=== PATIENT | female | born 1950 | race African-American/Black ===

== ENCOUNTER 2017-05-03 11:46 | Observation (INO) | payer OTHER ==
[~2017-05-03] VITALS: Ht 167.6 cm; Wt 78.0 kg
[~2017-05-03 11:46] MED LIST: AMLODIPINE BESYL5 MG PO; CELEBREX PO; DITROPAN5 MG PO; FLEXERIL10 MG PO; LANTUS; LANTUS 10100 UNITS/ SC; LIDOCAINE700 MG TD; METFORMIN; METFORMIN HCL500 MG PO; NOVOLOG; NOVOLOG 10100 UNITS/ SC; OXYBUTIN; QUINAPRIL HCL5 MG PO; QUINOPRIL; TYLENOL WITH C1 EACH PO; VGO 401 EACH MC
[2017-05-03 13:10] LABS: HEMATOCRIT 42.7 % (36.0-46.0); HEMOGLOBIN 14.7 G/DL (11.9-15.5); MCH 29.4 PG (29.0-34.0); MCHC 34.4 G/DL (30.0-36.0); MCV 85.4 FL (83-99); PLATELET COUNT 449 K/uL (156-360); RBC DIS.WIDTH-CV 13.7 % (11.8-14.6); RBC DIS.WIDTH-SD 42.5 % (39-53); WHITE BLOOD COUNT 10.9 K/uL (4.1-10.2)
[2017-05-03 13:18] LABS: ALBUMIN 3.7 g/dL (3.2-4.8); CHLORIDE 100 mEq/L (99-109); POTASSIUM 3.8 mEq/L (3.7-5.4); SODIUM 136 mEq/L (136-147)
[2017-05-03 13:20] LABS: GLUCOSE 99 mg/dL (70-99); TOTAL PROTEIN 8.7 g/dL (6.4-8.3)
[2017-05-03 13:22] LABS: TOTAL BILIRUBIN 0.5 mg/dL (0.0-1.0)
[2017-05-03 13:24] LABS: ALKALINE PHOSPHATASE 135 IU/L (3-129); CREATININE 1.9 mg/dL (0.6-1.3); GFR ESTIMATE (CALCULATED) 34 mL/min/
[2017-05-03 13:25] LABS: AST (GOT) 18 IU/L (2-34); UREA NITROGEN (BUN) 39 mg/dL (9-23)
[2017-05-03 13:27] LABS: ALT (GPT) 20 IU/L (3-49)
[2017-05-03 13:53] LABS: TROP-I INTERPRETATION NEGATIVE; TROPONIN-I < 0.01 ng/mL (0.0-0.30)
[2017-05-03 14:06] LABS: APPEARANCE CLOUDY ((CLEAR)); BILIRUBIN NEGATIVE; BLOOD MODERATE; COLOR YELLOW ((YELLOW)); GLUCOSE (STRIP) NEGATIVE; KETONES NEGATIVE; LEUKOCYTES MODERATE; NITRITE NEGATIVE; PROTEIN (STRIP) 100; SPECIFIC GRAVITY 1.012 (1.000-1.030); UROBILINOGEN 0.2 MG/DL (0.2-1.0)
[2017-05-03 14:30] LABS: WHITE BLOOD CELLS 20-30 /HPF (0-5)
[2017-05-03 14:31] LABS: MUCUS NONE SEEN /LPF
[2017-05-03 14:32] LABS: BACTERIA 3+ /HPF; EPITHELIAL CELLS 1+ /HPF
[2017-05-03] MEDS ORDERED: NEURONTIN100 MG PO (15:59)
[2017-05-03] MEDS ORDERED: LO-DOSE ASPIRIN81 M1 PO (16:01)
[2017-05-03] MEDS ORDERED: VITAMIN E100 UNIT PO (16:04)
[2017-05-03] MEDS ORDERED: VITAMIN D2000 UNI1 PO (16:06)
[2017-05-03] MEDS ORDERED: CYANOCOBALAM1000 MCG PO (16:07)
[2017-05-03] MEDS ORDERED: [UNRECOGNIZED DRUG - CODE] TP (16:14)
[2017-05-03] MEDS ORDERED: CENTRUM SILVER1 EAC3 PO (16:17)
[2017-05-03] MEDS ORDERED: PRAVACHOL10 MG PO (16:18)
[2017-05-03 18:14] VITALS: BP 147/86
[2017-05-03 20:00] VITALS: BP 120/62
[2017-05-04 00:04] VITALS: BP 111/63
[2017-05-04 05:50] LABS: HEMATOCRIT 39.2 % (36.0-46.0); HEMOGLOBIN 13.1 G/DL (11.9-15.5); MCH 28.5 PG (29.0-34.0); MCHC 33.4 G/DL (30.0-36.0); MCV 85.2 FL (83-99); PLATELET COUNT 415 K/uL (156-360); RBC DIS.WIDTH-CV 13.5 % (11.8-14.6); RBC DIS.WIDTH-SD 42.5 % (39-53); WHITE BLOOD COUNT 9.9 K/uL (4.1-10.2)
[2017-05-04 08:08] VITALS: BP 137/80
[2017-05-04 08:10] LABS: CHLORIDE 105 MEQ/L (99-109); CREATININE 1.6 MG/DL (0.6-1.3); GFR ESTIMATE (CALCULATED) 42 mL/min/; GLUCOSE 81 mg/dL (70-99); POTASSIUM 4.1 MEQ/L (3.7-5.4); SODIUM 138 MEQ/L (136-147); UREA NITROGEN (BUN) 33 mg/dL (9-23)
[2017-05-04 10:17] LABS: HEMOGLOBIN A1c (GLYCOHEMOGLOB) 7.8 % (Below 5.7)
[2017-05-04 12:39] VITALS: BP 120/73
[2017-05-04 15:41] VITALS: BP 133/79
[2017-05-04 19:00] VITALS: BP 111/60
[2017-05-05 00:57] VITALS: BP 107/59
[2017-05-05 05:39] VITALS: BP 115/87
[2017-05-05 07:12] LABS: CHLORIDE 110 MEQ/L (99-109); CREATININE 1.4 MG/DL (0.6-1.3); GFR ESTIMATE (CALCULATED) 49 mL/min/; POTASSIUM 4.3 MEQ/L (3.7-5.4); SODIUM 139 MEQ/L (136-147); UREA NITROGEN (BUN) 27 mg/dL (9-23)
[2017-05-05 07:22] LABS: GLUCOSE 116 mg/dL (70-99)
[2017-05-05 08:24] VITALS: BP 115/58
[2017-05-05 11:32] VITALS: BP 104/72
[2017-05-05] MEDS ORDERED: OXYCODONE-APAP1 EACH PO (11:36)
[2017-05-05] MEDS ORDERED: TRAMADOL HCL50 MG PO (11:36)
[2017-05-05] MEDS ORDERED: CYCLOBENZAPRINE5 MG PO (11:36)
[2017-05-05] MEDS ORDERED: LIDOCARE1 EACH TP (11:36)
[2017-05-05] MEDS ORDERED: MELOXICAM7.5 MG PO (11:37)
== END 2017-05-05 14:36 | disposition home or self-care (01) ==
LOC: EME 11:46 → 5WEST 16:03 → EDOF 16:03 → ENRESERV 16:07 → 5WEST 17:33
PROVIDERS: Internal Medicine; Nurse Practitioner Family
DX: N17.9 Acute kidney failure, unspecified (principal); M54.42 Lumbago with sciatica, left side; M47.27 Other spondylosis with radiculopathy, lumbosacral region; I10 Essential (primary) hypertension; E11.9 Type 2 diabetes mellitus without complications; F40.240 Claustrophobia; G89.29 Other chronic pain; R26.89 Other abnormalities of gait and mobility; W18.30XA Fall on same level, unspecified, initial encounter; K59.00 Constipation, unspecified; Z87.891 Personal history of nicotine dependence; Z90.710 Acquired absence of both cervix and uterus; Z82.49 Family history of ischemic heart disease and other diseases of the circulatory system; Z83.3 Family history of diabetes mellitus; Z82.0 Family history of epilepsy and other diseases of the nervous system; Z79.82 Long term (current) use of aspirin; Z79.4 Long term (current) use of insulin
CPT/HCPCS: 71046; 72100; 72148; 73590; 80048; 80053; 81003; 82948; 83036; 83880; 84484; 85027; 85379; 87077; 87086; 87186; 93005; 99281; 99285; G0378; J0696; J1650; J1815; J2060; J2270; J7030

== ENCOUNTER 2017-09-20 16:15 | Inpatient (IN) | payer OTHER ==
[~2017-09-20] VITALS: Ht 167.6 cm; Wt 82.2 kg
[~2017-09-20 16:15] MED LIST changes: +CENTRUM SILVER1 EAC3 PO; +CYANOCOBALAM1000 MCG PO; +CYCLOBENZAPRINE5 MG PO; +LIDOCARE1 EACH TP; +LO-DOSE ASPIRIN81 M1 PO; +MELOXICAM7.5 MG PO; +NEURONTIN100 MG PO; +OXYCODONE-APAP1 EACH PO; +PRAVACHOL10 MG PO; +TRAMADOL HCL50 MG PO; +VITAMIN D2000 UNI1 PO; +VITAMIN E100 UNIT PO; +[UNRECOGNIZED DRUG - CODE] TP
[2017-09-20 17:45] LABS: HEMATOCRIT 33.7 % (36.0-46.0); HEMOGLOBIN 11.8 G/DL (11.9-15.5); MCH 28.6 PG (29.0-34.0); MCV 81.8 FL (83-99); PLATELET COUNT 235 K/uL (156-360); RBC DIS.WIDTH-CV 14.6 % (11.8-14.6); RBC DIS.WIDTH-SD 43.6 % (39-53); RED BLOOD COUNT 4.12 M/uL (3.80-5.20); WHITE BLOOD COUNT 22.9 K/uL (4.1-10.2)
[2017-09-20 17:53] LABS: INTER. NORMALIZED RATIO 1.2
[2017-09-20 17:54] LABS: ALBUMIN 3.2 g/dL (3.2-4.8); CHLORIDE 97 mEq/L (99-109); POTASSIUM 4.2 mEq/L (3.7-5.4); SODIUM 128 mEq/L (136-147)
[2017-09-20 17:57] LABS: TOTAL PROTEIN 7.8 g/dL (6.4-8.3)
[2017-09-20 17:58] LABS: TOTAL BILIRUBIN 1.1 mg/dL (0.0-1.0)
[2017-09-20 18:00] LABS: ALKALINE PHOSPHATASE 161 IU/L (3-129); CREATININE 2.2 mg/dL (0.6-1.3); GFR ESTIMATE (CALCULATED) 29 mL/min/
[2017-09-20 18:01] LABS: UREA NITROGEN (BUN) 32 mg/dL (9-23)
[2017-09-20 18:02] LABS: AST (GOT) 24 IU/L (2-34)
[2017-09-20 18:03] LABS: ALT (GPT) 35 IU/L (3-49)
[2017-09-20 18:04] LABS: LIPASE 18 U/L (1.0-51.0)
[2017-09-20 18:10] LABS: TROP-I INTERPRETATION NEGATIVE; TROPONIN-I 0.02 ng/mL (0.0-0.30)
[2017-09-20 18:15] LABS: GLUCOSE 440 mg/dL (70-99)
[2017-09-20 18:34] LABS: BASOPHIL (%) 0.2 % (0-1); BASOPHIL COUNT 0.1 K/uL (0-0.1); EOSINOPHIL (%) 0 % (0-5); HEMATOLOGY COMMENT 1 SMEAR COMPATIBLE; IMMATURE GRANULOCYTE (%) 0.8 % (0.0-0.7); LYMPHOCYTE (%) 3.2 % (15-42); LYMPHOCYTE COUNT 0.7 K/uL (1.0-2.8); MONOCYTE (%) 4.3 % (3-12); NEUTROPHIL (%) 91.5 % (45-76); PLAT.SUFFICIENCY ADEQUATE
[2017-09-20] MEDS ORDERED: MIRALAX17 GM PO (18:50)
[2017-09-20] MEDS ORDERED: CYMBALTA60 MG PO (18:50)
[2017-09-20] MEDS ORDERED: VENTOLIN HFA18 GM IH (18:50)
[2017-09-20 20:33] LABS: APPEARANCE SL.HAZY ((CLEAR)); BILIRUBIN NEGATIVE; BLOOD MODERATE; COLOR YELLOW ((YELLOW)); GLUCOSE (STRIP) 150; KETONES NEGATIVE; LEUKOCYTES MODERATE; NITRITE POSITIVE; PROTEIN (STRIP) 100; UROBILINOGEN 0.2 MG/DL (0.2-1.0)
[2017-09-20 20:57] LABS: BACTERIA 2+ /HPF; EPITHELIAL CELLS RARE /HPF; MUCUS NONE SEEN /LPF; RED BLOOD CELLS 0-5 /HPF (0-5); UCUL ADDED? YES
[2017-09-20 23:01] LABS: ALBUMIN 2.7 g/dL (3.2-4.8)
[2017-09-20 23:09] LABS: AST (GOT) 23 IU/L (2-34); DIRECT BILIRUBIN 1.3 mg/dL (0.0-0.3)
[2017-09-20 23:10] LABS: ALT (GPT) 31 IU/L (3-49)
[2017-09-20 23:11] LABS: ALKALINE PHOSPHATASE 331 IU/L (3-129); TOTAL BILIRUBIN 1.8 mg/dL (0.0-1.0); TOTAL PROTEIN 6.5 g/dL (6.4-8.3)
[2017-09-20 23:15] LABS: TROP-I INTERPRETATION NEGATIVE; TROPONIN-I 0.05 ng/mL (0.0-0.30)
[2017-09-21 00:01] VITALS: BP 88/52
[2017-09-21 00:36] VITALS: BP 85/52
[2017-09-21 02:52] LABS: HEMATOCRIT 28.1 % (36.0-46.0); HEMOGLOBIN 9.8 G/DL (11.9-15.5); MCH 28.9 PG (29.0-34.0); MCHC 34.9 G/DL (30.0-36.0); MCV 82.9 FL (83-99); PLATELET COUNT 190 K/uL (156-360); RBC DIS.WIDTH-CV 14.7 % (11.8-14.6); RBC DIS.WIDTH-SD 44.6 % (39-53); RED BLOOD COUNT 3.39 M/uL (3.80-5.20); WHITE BLOOD COUNT 22.1 K/uL (4.1-10.2)
[2017-09-21 03:28] VITALS: BP 80/57
[2017-09-21 04:56] LABS: PCO2 29 mm Hg (35-45); PO2 66 mm Hg (80-100); pH 7.42 (7.35-7.45)
[2017-09-21 04:57] LABS: BASE EXCESS -4.8 mEq/L (-3 to +3); BICARBONATE 18.8 mEq/L (22-26); COMMENTS - BLOOD GASES C+; FI02 21 %; METHEMOGLOBIN 1.1 % (0-1.5); SITE RR; TOTAL RESP RATE 24 resp/min
[2017-09-21 05:06] VITALS: BP 86/57
[2017-09-21 05:06] LABS: INTER. NORMALIZED RATIO 1.2
[2017-09-21 05:15] LABS: FIBRINOGEN 809 mg/dL (150-450); PTT 54.1 SEC (25-37)
[2017-09-21 09:02] LABS: GLUCOSE 141 mg/dL (70-99); UREA NITROGEN (BUN) 37 mg/dL (9-23)
[2017-09-21 09:03] LABS: CREATININE 2.9 MG/DL (0.6-1.3); GFR ESTIMATE (CALCULATED) 21 mL/min/
[2017-09-21 09:42] LABS: CHLORIDE 104 MEQ/L (99-109); POTASSIUM 4.1 MEQ/L (3.7-5.4); SODIUM 134 MEQ/L (136-147)
[2017-09-21 12:07] VITALS: BP 128/69
[2017-09-21 19:46] VITALS: BP 130/70
[2017-09-22 00:07] VITALS: BP 139/65
[2017-09-22 03:43] VITALS: BP 125/68
[2017-09-22 05:54] LABS: HEMATOCRIT 26.9 % (36.0-46.0); HEMOGLOBIN 9.1 G/DL (11.9-15.5); MCH 27.7 PG (29.0-34.0); MCHC 33.8 G/DL (30.0-36.0); PLATELET COUNT 223 K/uL (156-360); RBC DIS.WIDTH-CV 15.2 % (11.8-14.6); RED BLOOD COUNT 3.28 M/uL (3.80-5.20)
[2017-09-22 06:20] LABS: CHLORIDE 111 MEQ/L (99-109); GFR ESTIMATE (CALCULATED) 30 mL/min/; POTASSIUM 3.6 MEQ/L (3.7-5.4); SODIUM 139 MEQ/L (136-147); UREA NITROGEN (BUN) 34 mg/dL (9-23)
[2017-09-22 06:26] LABS: CREATININE 2.1 MG/DL (0.6-1.3); GLUCOSE 102 mg/dL (70-99)
[2017-09-22 06:35] LABS: VANCOMYCIN, TROUGH 7.2 MCG/ML (10-20)
[2017-09-22 07:27] VITALS: BP 145/80
[2017-09-22 12:07] VITALS: BP 144/84
[2017-09-22 15:36] VITALS: BP 146/82
[2017-09-22 19:55] VITALS: BP 183/83; BP 193/83
[2017-09-23] VITALS (7 sets, daily range): BP systolic 124–188; BP diastolic 70–94
[2017-09-23 06:13] LABS: HEMATOCRIT 27.1 % (36.0-46.0); HEMOGLOBIN 9.2 G/DL (11.9-15.5); MCHC 33.9 G/DL (30.0-36.0); MCV 82.6 FL (83-99); PLATELET COUNT 264 K/uL (156-360); RBC DIS.WIDTH-CV 15.5 % (11.8-14.6); RBC DIS.WIDTH-SD 47.1 % (39-53); RED BLOOD COUNT 3.28 M/uL (3.80-5.20); WHITE BLOOD COUNT 20.6 K/uL (4.1-10.2)
[2017-09-23 06:53] LABS: CHLORIDE 114 MEQ/L (99-109); CREATININE 1.8 MG/DL (0.6-1.3); GFR ESTIMATE (CALCULATED) 36 mL/min/; POTASSIUM 3.4 MEQ/L (3.7-5.4); SODIUM 143 MEQ/L (136-147); UREA NITROGEN (BUN) 29 mg/dL (9-23)
[2017-09-23 06:54] LABS: GLUCOSE 72 mg/dL (70-99)
[2017-09-24] VITALS (9 sets, daily range): BP systolic 110–182; BP diastolic 62–85
[2017-09-24 06:54] LABS: HEMATOCRIT 27.5 % (36.0-46.0); HEMOGLOBIN 9.1 G/DL (11.9-15.5); MCH 27.3 PG (29.0-34.0); MCHC 33.1 G/DL (30.0-36.0); MCV 82.6 FL (83-99); PLATELET COUNT 319 K/uL (156-360); RBC DIS.WIDTH-CV 15.3 % (11.8-14.6); RBC DIS.WIDTH-SD 46.9 % (39-53); RED BLOOD COUNT 3.33 M/uL (3.80-5.20); WHITE BLOOD COUNT 16.6 K/uL (4.1-10.2)
[2017-09-24 07:21] LABS: CHLORIDE 114 MEQ/L (99-109); CREATININE 1.4 MG/DL (0.6-1.3); GFR ESTIMATE (CALCULATED) 49 mL/min/; GLUCOSE 77 mg/dL (70-99); POTASSIUM 3.7 MEQ/L (3.7-5.4); SODIUM 145 MEQ/L (136-147); UREA NITROGEN (BUN) 21 mg/dL (9-23)
[2017-09-25 03:54] VITALS: BP 136/61
[2017-09-25 07:45] VITALS: BP 148/87
[2017-09-25 09:10] LABS: CHLORIDE 113 MEQ/L (99-109); CREATININE 1.3 MG/DL (0.6-1.3); GFR ESTIMATE (CALCULATED) 53 mL/min/; GLUCOSE 117 mg/dL (70-99); POTASSIUM 3.3 MEQ/L (3.7-5.4); SODIUM 143 MEQ/L (136-147); UREA NITROGEN (BUN) 17 mg/dL (9-23)
[2017-09-25 12:21] VITALS: BP 134/78
[2017-09-25 13:57] LABS: C DIFF TOXIN NEGATIVE (NEGATIVE)
[2017-09-25 15:21] VITALS: BP 178/73
[2017-09-25] MEDS ORDERED: CIPROFLOXACIN500 M1 PO (15:32)
[2017-09-25] MEDS ORDERED: AMLODIPINE BESYL5 MG PO (15:34)
== END 2017-09-25 16:47 | disposition home or self-care (01) | DRG 871 ==
LOC: EME 16:15 → EDOF 21:29 → 5SOUTH 21:29 → 4EAST 21:29 → ENRESERV 21:33 → ENRESERVTM 21:53 → 5SOUTH 09-21 00:18 → ENRESERV 09-21 04:36 → 4EAST 09-21 04:56 → ENRESERV 09-24 11:43 → 5SOUTH 09-24 14:48
PROVIDERS: Emergency Medicine; Hospitalist; Internal Medicine
DX: A41.9 Sepsis, unspecified organism (principal); N13.6 Pyonephrosis; E11.22 Type 2 diabetes mellitus with diabetic chronic kidney disease; E11.42 Type 2 diabetes mellitus with diabetic polyneuropathy; E11.65 Type 2 diabetes mellitus with hyperglycemia; N17.9 Acute kidney failure, unspecified; R65.20 Severe sepsis without septic shock; E78.5 Hyperlipidemia, unspecified; Z87.891 Personal history of nicotine dependence; B96.20 Unspecified Escherichia coli [E. coli] as the cause of diseases classified elsewhere; R19.7 Diarrhea, unspecified; Z90.49 Acquired absence of other specified parts of digestive tract; Z79.4 Long term (current) use of insulin; N32.81 Overactive bladder; N18.9 Chronic kidney disease, unspecified; I12.9 Hypertensive chronic kidney disease with stage 1 through stage 4 chronic kidney disease, or unspecified chronic kidney disease; R09.02 Hypoxemia; E87.1 Hypo-osmolality and hyponatremia; E87.2 Acidosis; E87.6 Hypokalemia; N81.9 Female genital prolapse, unspecified; J18.9 Pneumonia, unspecified organism; Z87.442 Personal history of urinary calculi
CPT/HCPCS: 36600; 71046; 71250; 74018; 74176; 74420; 78582; 80048; 80053; 80076; 80202; 81003; 82800; 82803; 82948; 83605; 83690; 83880; 83930; 84484; 85025; 85027; 85379; 85384; 85610; 85730; 87040; 87077; 87086 GA; 87186; 87493; 87801; 93005; 93970; 94799; 99281; 99285; A9540; A9567; C2625; J1644; J1815; J2405; J2543; J2930; J3010; J3370; J7030; J7050; J7120

== ENCOUNTER 2017-10-12 23:27 | Inpatient (IN) | payer OTHER ==
[~2017-10-12] VITALS: Ht 167.6 cm; Wt 76.5 kg
[~2017-10-12 23:27] MED LIST changes: +CIPROFLOXACIN500 M1 PO; +CYMBALTA60 MG PO; +MIRALAX17 GM PO; +VENTOLIN HFA18 GM IH
[2017-10-13 00:45] LABS: BASOPHIL (%) 0.3 % (0-1); EOSINOPHIL (%) 0 % (0-5); HEMATOCRIT 26.8 % (36.0-46.0); HEMOGLOBIN 9.2 G/DL (11.9-15.5); IMMATURE GRANULOCYTE (%) 0.5 % (0.0-0.7); LYMPHOCYTE (%) 8.7 % (15-42); MCH 27.8 PG (29.0-34.0); MCHC 34.3 G/DL (30.0-36.0); MONOCYTE (%) 5.2 % (3-12); MONOCYTE COUNT 0.6 K/uL (0-0.8); NEUTROPHIL (%) 85.3 % (45-76); NEUTROPHIL COUNT 9.3 K/uL (1.8-6.4); PLATELET COUNT 335 K/uL (156-360); RBC DIS.WIDTH-CV 14.1 % (11.8-14.6); RBC DIS.WIDTH-SD 42.3 % (39-53); RED BLOOD COUNT 3.31 M/uL (3.80-5.20); WHITE BLOOD COUNT 10.9 K/uL (4.1-10.2)
[2017-10-13 00:59] LABS: CHLORIDE 100 mEq/L (99-109); POTASSIUM 3.9 mEq/L (3.7-5.4); SODIUM 133 mEq/L (136-147)
[2017-10-13 01:01] LABS: GLUCOSE 54 mg/dL (70-99)
[2017-10-13 01:05] LABS: CREATININE 2.6 mg/dL (0.6-1.3); GFR ESTIMATE (CALCULATED) 24 mL/min/
[2017-10-13 01:06] LABS: UREA NITROGEN (BUN) 20 mg/dL (9-23)
[2017-10-13 02:06] LABS: APPEARANCE SL.HAZY ((CLEAR)); BILIRUBIN NEGATIVE; BLOOD SMALL; COLOR YELLOW ((YELLOW)); GLUCOSE (STRIP) NEGATIVE; KETONES NEGATIVE; LEUKOCYTES TRACE; NITRITE NEGATIVE; PROTEIN (STRIP) >=500; SPECIFIC GRAVITY 1.015 (1.000-1.030); UROBILINOGEN 0.2 MG/DL (0.2-1.0)
[2017-10-13 02:11] LABS: BACTERIA RARE /HPF; EPITHELIAL CELLS 2+ /HPF; MUCUS TRACE /LPF; RED BLOOD CELLS 0-5 /HPF (0-5); UCUL ADDED? NO; WHITE BLOOD CELLS 0-5 /HPF (0-5)
[2017-10-13 06:24] VITALS: BP 119/60
[2017-10-13 06:59] LABS: C-REACTIVE PROTEIN 206.4 MG/L (0-10)
[2017-10-13 07:25] VITALS: BP 111/56
[2017-10-13 07:45] LABS: ERTH.SED.RATE 123 MM/HR (0-30)
[2017-10-13 11:00] VITALS: BP 107/59
[2017-10-13 15:25] VITALS: BP 137/65
[2017-10-13 17:44] LABS: ALBUMIN 2.9 g/dL (3.2-4.8); CHLORIDE 105 mEq/L (99-109); POTASSIUM 4.2 mEq/L (3.7-5.4); SODIUM 135 mEq/L (136-147)
[2017-10-13 17:49] LABS: GLUCOSE 161 mg/dL (70-99)
[2017-10-13 17:50] LABS: CREATININE 2.5 mg/dL (0.6-1.3); GFR ESTIMATE (CALCULATED) 25 mL/min/; PHOSPHORUS 1.9 mg/dL (2.5-4.9)
[2017-10-13 17:51] LABS: UREA NITROGEN (BUN) 21 mg/dL (9-23)
[2017-10-13 18:24] VITALS: BP 175/74
[2017-10-13 21:25] VITALS: BP 131/63
[2017-10-14] VITALS (7 sets, daily range): BP systolic 120–184; BP diastolic 62–90
[2017-10-14 06:27] LABS: BASOPHIL (%) 0.4 % (0-1); EOSINOPHIL (%) 1.3 % (0-5); EOSINOPHIL COUNT 0.1 K/uL (0-0.3); HEMATOCRIT 24.4 % (36.0-46.0); IMMATURE GRANULOCYTE (%) 0.6 % (0.0-0.7); LYMPHOCYTE (%) 18.8 % (15-42); LYMPHOCYTE COUNT 1.6 K/uL (1.0-2.8); MCH 26.7 PG (29.0-34.0); MCHC 32.8 G/DL (30.0-36.0); MCV 81.3 FL (83-99); MONOCYTE (%) 10.7 % (3-12); MONOCYTE COUNT 0.9 K/uL (0-0.8); NEUTROPHIL (%) 68.2 % (45-76); NEUTROPHIL COUNT 5.8 K/uL (1.8-6.4); PLATELET COUNT 323 K/uL (156-360); RBC DIS.WIDTH-CV 14.4 % (11.8-14.6); RBC DIS.WIDTH-SD 42.4 % (39-53); WHITE BLOOD COUNT 8.4 K/uL (4.1-10.2)
[2017-10-14 06:51] LABS: ALBUMIN 2.6 G/DL (3.2-4.8); CHLORIDE 106 MEQ/L (99-109); CREATININE 2.1 MG/DL (0.6-1.3); GFR ESTIMATE (CALCULATED) 30 mL/min/; GLUCOSE 116 mg/dL (70-99); POTASSIUM 4.4 MEQ/L (3.7-5.4); SODIUM 138 MEQ/L (136-147); UREA NITROGEN (BUN) 18 mg/dL (9-23)
[2017-10-14] MEDS ORDERED: NOVOLOG 10100 UNITS/ SC (15:03)
[2017-10-15 03:40] VITALS: BP 155/67
[2017-10-15 06:47] LABS: HEMATOCRIT 23.5 % (36.0-46.0); HEMOGLOBIN 7.8 G/DL (11.9-15.5); MCH 26.6 PG (29.0-34.0); MCHC 33.2 G/DL (30.0-36.0); MCV 80.2 FL (83-99); PLATELET COUNT 373 K/uL (156-360); RBC DIS.WIDTH-CV 14.4 % (11.8-14.6); RBC DIS.WIDTH-SD 42.4 % (39-53); RED BLOOD COUNT 2.93 M/uL (3.80-5.20); WHITE BLOOD COUNT 11.3 K/uL (4.1-10.2)
[2017-10-15 07:20] VITALS: BP 136/65
[2017-10-15 07:37] LABS: ALBUMIN 2.6 G/DL (3.2-4.8); CHLORIDE 104 MEQ/L (99-109); CREATININE 1.8 MG/DL (0.6-1.3); GFR ESTIMATE (CALCULATED) 36 mL/min/; PHOSPHORUS 2.4 mg/dL (2.5-4.9); POTASSIUM 4.1 MEQ/L (3.7-5.4); SODIUM 137 MEQ/L (136-147); UREA NITROGEN (BUN) 14 mg/dL (9-23)
[2017-10-15 07:40] LABS: GLUCOSE 178 mg/dL (70-99)
[2017-10-15 11:45] VITALS: BP 135/76
[2017-10-15 16:06] VITALS: BP 140/67
[2017-10-15 19:23] VITALS: BP 121/57
[2017-10-15 23:02] VITALS: BP 112/61
[2017-10-16 03:37] VITALS: BP 105/52
[2017-10-16 07:06] VITALS: BP 144/64
[2017-10-16 07:07] LABS: ALBUMIN 2.3 G/DL (3.2-4.8); CHLORIDE 109 MEQ/L (99-109); CREATININE 1.6 MG/DL (0.6-1.3); GFR ESTIMATE (CALCULATED) 42 mL/min/; GLUCOSE 147 mg/dL (70-99); PHOSPHORUS 2.8 mg/dL (2.5-4.9); POTASSIUM 3.7 MEQ/L (3.7-5.4); SODIUM 140 MEQ/L (136-147); UREA NITROGEN (BUN) 14 mg/dL (9-23)
[2017-10-16 16:00] VITALS: BP 134/73
[2017-10-17 00:30] VITALS: BP 138/72
[2017-10-17 06:36] LABS: HEMATOCRIT 22.6 % (36.0-46.0); HEMOGLOBIN 7.3 G/DL (11.9-15.5); MCH 26.5 PG (29.0-34.0); MCHC 32.3 G/DL (30.0-36.0); MCV 82.2 FL (83-99); PLATELET COUNT 440 K/uL (156-360); RBC DIS.WIDTH-CV 14.8 % (11.8-14.6); RBC DIS.WIDTH-SD 44.5 % (39-53); RED BLOOD COUNT 2.75 M/uL (3.80-5.20); WHITE BLOOD COUNT 7.1 K/uL (4.1-10.2)
[2017-10-17 07:05] VITALS: BP 128/61
[2017-10-17 08:14] LABS: CHLORIDE 110 MEQ/L (99-109); CREATININE 1.2 MG/DL (0.6-1.3); FERRITIN 341 NG/ML (10-291); GFR ESTIMATE (CALCULATED) 58 mL/min/; IRON 38 MCG/DL (35-150); POTASSIUM 3.7 MEQ/L (3.7-5.4); SODIUM 144 MEQ/L (136-147); TRANSFERRIN (TIBC) 162.3 mg/dL (215-380); TRANSFERRIN SATUR. 23 % (20-55); UREA NITROGEN (BUN) 13 mg/dL (9-23)
[2017-10-17 08:16] LABS: GLUCOSE 92 mg/dL (70-99)
[2017-10-17 08:19] LABS: FOLIC ACID (FOLATE) > 22.0 NG/ML (5.0-22.0)
[2017-10-17 15:00] VITALS: BP 117/67
[2017-10-17 20:57] LABS: IMM.RETIC FRACTION 44.4 % (3-19); RETICULOCYTE COUNT 1.6 % (0.5-1.8)
[2017-10-17 21:21] LABS: A/G RATIO 0.7 (1.1-1.8); ALBUMIN 2.7 G/DL (3.4-5.0); GLOBULINS 4.1 G/DL (2.3-3.5); IMMUNOGLOBULIN G 1916 MG/DL (650-1600); IMMUNOGLOBULIN M 317 MG/DL (50-300); TOTAL PROTEIN 6.8 G/DL (6.4-8.2)
[2017-10-17 21:42] LABS: ALBUMIN 2.7 G/DL (3.2-4.8); ALKALINE PHOSPHATASE 114 IU/L (3-129); ALT (GPT) 29 IU/L (3-49); AST (GOT) 21 IU/L (2-34); C-REACTIVE PROTEIN 71.2 MG/L (0-10); DIRECT BILIRUBIN 0.1 mg/dL (0.0-0.3); LACTATE DEHYDROGENASE 140 IU/L (20-246); TOTAL BILIRUBIN 0.3 MG/DL (0.0-1.0); TOTAL PROTEIN 6.8 G/DL (6.4-8.3)
[2017-10-17 23:26] VITALS: BP 130/73
[2017-10-18 07:19] LABS: INTER. NORMALIZED RATIO 1.2
[2017-10-18 07:21] LABS: PTT 28.8 SEC (25-37)
[2017-10-18 07:30] VITALS: BP 124/73
[2017-10-18 08:18] LABS: HEMATOCRIT 24.1 % (36.0-46.0); HEMOGLOBIN 7.8 G/DL (11.9-15.5); MCH 26.8 PG (29.0-34.0); MCHC 32.4 G/DL (30.0-36.0); MCV 82.8 FL (83-99); PLATELET COUNT 544 K/uL (156-360); RBC DIS.WIDTH-CV 14.8 % (11.8-14.6); RBC DIS.WIDTH-SD 44.4 % (39-53); RED BLOOD COUNT 2.91 M/uL (3.80-5.20); WHITE BLOOD COUNT 10.1 K/uL (4.1-10.2)
[2017-10-18 15:02] LABS: ALBUMIN 2.38 G/DL (3.6-4.9); ALPHA-1 GLOBULIN 0.57 G/DL (0.15-0.40); ALPHA-2 GLOBULIN 0.95 G/DL (0.45-0.85); BETA-GLOBULIN 0.92 G/DL (0.65-1.15); GAMMA-GLOBULIN 1.97 G/DL (0.60-1.35)
[2017-10-18 15:25] VITALS: BP 133/66
[2017-10-18 20:04] LABS: HEMATOCRIT 23.9 % (36.0-46.0); HEMOGLOBIN 7.7 G/DL (11.9-15.5); MCV 82.4 FL (83-99)
[2017-10-19 00:04] VITALS: BP 130/62
[2017-10-19 06:12] LABS: HEMATOCRIT 24.1 % (36.0-46.0); HEMOGLOBIN 7.7 G/DL (11.9-15.5); MCV 82.3 FL (83-99)
[2017-10-19 07:15] VITALS: BP 134/68
[2017-10-19] MEDS ORDERED: TAMSULOSIN HCL0.4 MG PO (09:12)
[2017-10-19] MEDS ORDERED: GABAPENTIN100 MG PO (09:12)
[2017-10-19 09:34] LABS: HEMATOCRIT 25.7 % (36.0-46.0); HEMOGLOBIN 8.2 G/DL (11.9-15.5); MCV 83.2 FL (83-99)
[2017-10-20 13:44] LABS: STOOL OCCULT BLD 1ST SPECIMEN NEGATIVE
== END 2017-10-19 11:40 | disposition home or self-care (01) | DRG 689 ==
LOC: EME 23:27 → 5EAST 10-13 03:37 → EDOF 10-13 03:37 → ENRESERV 10-13 03:42 → 5EAST 10-13 05:26
PROVIDERS: Emergency Medicine; Hospitalist; Internal Medicine; Internal Medicine Nephrology; Physician Assistant
DX: N13.6 Pyonephrosis (principal); N17.9 Acute kidney failure, unspecified; E86.0 Dehydration; B37.7 Candidal sepsis; I12.9 Hypertensive chronic kidney disease with stage 1 through stage 4 chronic kidney disease, or unspecified chronic kidney disease; E11.22 Type 2 diabetes mellitus with diabetic chronic kidney disease; N18.3 Chronic kidney disease, stage 3 (moderate); D63.1 Anemia in chronic kidney disease; E11.42 Type 2 diabetes mellitus with diabetic polyneuropathy; N81.10 Cystocele, unspecified; Z79.82 Long term (current) use of aspirin; Z79.4 Long term (current) use of insulin; Z87.891 Personal history of nicotine dependence; I25.2 Old myocardial infarction
CPT/HCPCS: 71045; 74176; 74420; 76770; 80048; 80048 91; 80069; 80076; 81003; 82272; 82607; 82728; 82746; 82784; 82948; 83540; 83605; 83615; 83883 90; 84165; 84238 90; 84466; 85014; 85018; 85025; 85027; 85046; 85610; 85651; 85730; 86140; 86334; 87040; 87077; 87086; 87149; 87149 59; 87186; 87186 90; 93306; 99281; 99285; C1758; C2625; J0692; J0696; J1650; J1815; J2248; J2250; J2405; J3010; J7030; J7050

== ENCOUNTER 2017-11-15 08:57 | Day surgery (SDC) | payer OTHER ==
[~2017-11-15] VITALS: Ht 167.6 cm; Wt 71.8 kg
[~2017-11-15 08:57] MED LIST changes: +FLOMAX0.4 MG PO; +GABAPENTIN100 MG PO; +MACRODANTIN100 MG PO; +NORVASC5 MG PO; +TAMSULOSIN HCL0.4 MG PO
[2017-11-15 09:39] VITALS: BP 140/69
[2017-11-15 09:42] LABS: BASOPHIL (%) 0.3 % (0-1); EOSINOPHIL (%) 2.5 % (0-5); EOSINOPHIL COUNT 0.2 K/uL (0-0.3); HEMATOCRIT 32.2 % (36.0-46.0); HEMOGLOBIN 10.5 G/DL (11.9-15.5); IMMATURE GRANULOCYTE (%) 0.3 % (0.0-0.7); LYMPHOCYTE (%) 22.6 % (15-42); LYMPHOCYTE COUNT 2.1 K/uL (1.0-2.8); MCH 27.2 PG (29.0-34.0); MCHC 32.6 G/DL (30.0-36.0); MCV 83.4 FL (83-99); MONOCYTE (%) 6.4 % (3-12); MONOCYTE COUNT 0.6 K/uL (0-0.8); NEUTROPHIL (%) 67.9 % (45-76); NEUTROPHIL COUNT 6.3 K/uL (1.8-6.4); PLATELET COUNT 417 K/uL (156-360); RBC DIS.WIDTH-CV 15.3 % (11.8-14.6); RBC DIS.WIDTH-SD 46.3 % (39-53); RED BLOOD COUNT 3.86 M/uL (3.80-5.20); WHITE BLOOD COUNT 9.2 K/uL (4.1-10.2)
[2017-11-15 10:02] LABS: CHLORIDE 104 MEQ/L (99-109); CREATININE 1.1 MG/DL (0.6-1.3); GFR ESTIMATE (CALCULATED) > 59 mL/min/; GLUCOSE 111 mg/dL (70-99); SODIUM 139 MEQ/L (136-147); UREA NITROGEN (BUN) 15 mg/dL (9-23)
[2017-11-15 12:20] VITALS: BP 144/86
[2017-11-15 13:32] VITALS: BP 178/84
== END 2017-11-15 14:02 | disposition home or self-care (01) ==
LOC: SDC 08:57
PROVIDERS: Urology
DX: N20.0 Calculus of kidney (principal); I10 Essential (primary) hypertension; E11.9 Type 2 diabetes mellitus without complications; R00.0 Tachycardia, unspecified; I25.2 Old myocardial infarction; Z87.891 Personal history of nicotine dependence; Z79.4 Long term (current) use of insulin; Z79.82 Long term (current) use of aspirin
CPT/HCPCS: 80048; 82948; 85025; 93005; C1894; C2625; J0330; J0690; J1100; J1885; J2405; J3010